=== PATIENT | female | born 1980 | race Caucasian/White ===

== ENCOUNTER 2016-12-09 08:08 | Day surgery (SDC) | payer MEDICAID ==
[~2016-12-09 08:08] MED LIST: Lactated Ringers 1,000 ML IV SCH; Lidocaine 1%/Sod Bicarbonate in NS 8.4% 1 ML Syringe IV PRN; Sodium Chloride 0.9% 10 ML Syringe FLUSH PRN
[2016-12-09] MEDS ORDERED: Dexamethasone 4 MG/ML SDV ONE (08:16)
[2016-12-09] MEDS ORDERED: Succinylcholine/Normal Saline 100 MG/5 ML Syringe ONE (08:16)
[2016-12-09] MEDS ORDERED: Lidocaine 1% 4 ML ONE (08:16)
[2016-12-09] MEDS ORDERED: Ondansetron 4 MG/2 ML SDV ONE (08:16)
[2016-12-09] MEDS ORDERED: Propofol 200 MG/20 ML SDV ONE (08:16)
[2016-12-09] MEDS ORDERED: fentaNYL 250 MCG/5 ML SDV ONE (08:16)
[2016-12-09] MEDS ORDERED: Midazolam 1 MG/ML 2 ML SDV ONE (08:16)
[2016-12-09] MEDS ORDERED: ceFAZolin 1 GM Vial ONE ×2 (08:17)
[2016-12-09] MEDS ORDERED: fentaNYL 100 MCG/2 ML SDV IVPUSH PRN (08:38)
[2016-12-09] MEDS ORDERED: diphenhydrAMINE 50 MG/ML SDV IVPUSH PRN (08:38)
--- NOTE | 2016-12-09 08:50 | PCM.PREANE ---
PreAnesthesia Questionnaire - CURRENT (IN HOUSE) MEDS Current Meds: Current Medications Diphenhydramine HCl (Benadryl) 25 mg IVPUSH Q6H PRN PRN Reason: pruritis Fentanyl (Sublimaze) 50 mcg IVPUSH Q5M PRN PRN Reason: Pain Hydromorphone HCl (Dilaudid) 0.5 mg IVPUSH Q15M PRN PRN Reason: severe pain Stop: 12/09/16 08:54 Lactated Ringer's (Ringers, Lactated) 1,000 mls @ 125 mls/hr IV ASDIRECTED [facility] Lidocaine/Sodium Bicarbonate (Buffered Lidocaine 1% In Ns 8.4%) 0.25 ml IV ONETIME PRN PRN Reason: Prior to IV Start Meperidine HCl (Demerol) 12.5 mg IVPUSH ONETIME PRN PRN Reason: shivering Stop: 12/10/16 08:39 Ondansetron HCl (Zofran) 4 mg IVPUSH ONETIME PRN PRN Reason: Nausea/Vomiting Sodium Chloride (Saline Flush) 10 ml FLUSH ASDIRECTED PRN PRN Reason: Keep Vein Open Discontinued Medications Cefazolin Sodium (Ancef) Confirm Administered Dose 1 gm .ROUTE .STK-MED ONE Stop: 12/09/16 08:18 Cefazolin Sodium (Ancef) Confirm Administered Dose 1 gm .ROUTE .STK-MED ONE Stop: 12/09/16 08:18 Dexamethasone (Dexamethasone) Confirm Administered Dose 8 mg .ROUTE .STK-MED ONE Stop: 12/09/16 08:17 Fentanyl (Sublimaze) Confirm Administered Dose 250 mcg .ROUTE .STK-MED ONE Stop: 12/09/16 08:17 Lactated Ringer's (Ringers, Lactated) 1,000 mls @ 125 mls/hr IV ASDIRECTED [facility] Stop: 11/25/16 23:00 Lidocaine HCl (Xylocaine-Mpf 1%) Confirm Administered Dose 4 mls @ as directed .ROUTE .STK-MED ONE Stop: 12/09/16 08:17 Lidocaine/Sodium Bicarbonate (Buffered Lidocaine 1% In Ns 8.4%) 0.25 ml IV ONETIME PRN PRN Reason: Prior to IV Start Stop: 11/25/16 18:00 Midazolam HCl (Versed 1 Mg/Ml) Confirm Administered Dose 2 mg .ROUTE .STK-MED ONE Stop: 12/09/16 08:17 Ondansetron HCl (Zofran) Confirm Administered Dose 4 mg .ROUTE .STK-MED ONE Stop: 12/09/16 08:17 Propofol (Diprivan 20 Ml) Confirm Administered Dose 400 mg .ROUTE .STK-MED ONE Stop: 12/09/16 08:17 Sodium Chloride (Saline Flush) 10 ml FLUSH ASDIRECTED PRN PRN Reason: Keep Vein Open Stop: 11/25/16 18:00 Succinylcholine Chloride (Succinylcholine In Ns Pf) Confirm Administered Dose 100 mg .ROUTE .STK-MED ONE Stop: 12/09/16 08:17
[2016-12-09] MEDS ORDERED: Ondansetron 4 MG/2 ML SDV IVPUSH PRN (08:59)
--- NOTE | 2016-12-09 09:12 | PCM.PREANE ---
Preanesthetic Assessment - ANESTHESIA/TRANSFUSION/FAMILY HX Anesthesia/Transfusion History: No Prior Transfusion(s), Prior Anesthesia (no complications noted ) Family History of Anesthesia Reaction: No - REVIEW OF SYSTEMS Constitutional: Reports: no symptoms TAILER OFF: Reports: no symptoms Respiratory: Reports: no symptoms Cardiovascular: Reports: no symptoms GI: Reports: no symptoms Other: Reports: none - PHYSICAL ASSESSMENT O2 Sat by Pulse Oximetry: 98 RR: 18 Vital Signs: Last Vital Signs Temp 36.6 C 12/09/16 08:35 Pulse 63 12/09/16 08:35 Resp 18 12/09/16 08:35 BP 116/91 H 12/09/16 08:35 Pulse Ox 98 12/09/16 08:35 NPO Status Date: 12/09/16 NPO Status Time: 22:00 ASA Class: 2 Mental Status: alert & oriented x3 Airway Class: Mallampati = 1 Dentition: Reports: normal dentition Thyro-Mental Finger Breadths: 3 Mouth Opening Finger Breadths: 5 ROM/Head Extension: full Respiratory Status: lungs clear to auscultation bilaterally Cardiovascular Status: regular rate & rhythm, normal S1, S2, no murmur, blood pressure WNL - ALLERGIES Allergies/Adverse Reactions: Allergies Allergy/AdvReac Type Severity Reaction Status Date / Time No Known Drug Allergies Allergy Other Verified 12/09/16 09:09 - BLOOD Blood Available: No - ANESTHESIA PLAN Preop Beta Ericka: No Anesthesia Type Planned: general anesthesia - ACKNOWLEDGEMENTS Pt an appropriate candidate for the planned anesthesia: Yes Alternatives and risks of anesthesia discussed w pt/guardian: Yes Pt/Guardian understands and agree with anesthesia plan: Yes PreAnesthesia Questionnaire HEENT History: Reports: None Cardiovascular History: Reports: None Respiratory History: Reports: None Gastrointestinal History: Reports: None Genitourinary History: Reports: None : 5 Para: 3 Musculoskeletal History: Reports: None Neurological History: Reports: None Psychiatric History: Reports: None Endocrine/Metabolic History: Reports: None Hematologic History: Reports: None Immunologic History: Reports: None Oncologic (Cancer) History: Reports: None Dermatologic History: Reports: None - Infectious Disease History Infectious Disease History: Reports: None - Past Surgical History Female Surgical History: Reports: Other (see below) (IVF) - SUBSTANCE USE Smoking Status *Q: Never Smoker Tobacco Use Within Last Twelve Months: No Number of Drinks Per Day: 0 (has not drank since august ) Recreational Drug Use History: No - HOME MEDS Home Medications: Home Meds . [No Known Home Meds] 12/09/16 [History] - CURRENT (IN HOUSE) MEDS Current Meds: Current Medications Diphenhydramine HCl (Benadryl) 25 mg IVPUSH Q6H PRN PRN Reason: pruritis Stop: 12/09/16 23:59 Fentanyl (Sublimaze) 50 mcg IVPUSH Q5M PRN PRN Reason: Pain Stop: 12/09/16 23:59 Hydromorphone HCl (Dilaudid) 0.5 mg IVPUSH Q15M PRN PRN Reason: severe pain Stop: 12/09/16 09:46 Lactated Ringer's (Ringers, Lactated) 1,000 mls @ 125 mls/hr IV ASDIRECTED [facility] Stop: 12/09/16 23:59 Lidocaine/Sodium Bicarbonate (Buffered Lidocaine 1% In Ns 8.4%) 0.25 ml IV ONETIME PRN PRN Reason: Prior to IV Start Stop: 12/09/16 23:59 Meperidine HCl (Demerol) 12.5 mg IVPUSH ONETIME PRN PRN Reason: shivering Stop: 12/10/16 09:31 Ondansetron HCl (Zofran) 4 mg IVPUSH ONETIME PRN PRN Reason: Nausea/Vomiting Stop: 12/09/16 23:59 Sodium Chloride (Saline Flush) 10 ml FLUSH ASDIRECTED PRN PRN Reason: Keep Vein Open Stop: 12/09/16 23:59 Discontinued Medications Cefazolin Sodium (Ancef) Confirm Administered Dose 1 gm .ROUTE .STK-MED ONE Stop: 12/09/16 08:18 Cefazolin Sodium (Ancef) Confirm Administered Dose 1 gm .ROUTE .STK-MED ONE Stop: 12/09/16 08:18 Dexamethasone (Dexamethasone) Confirm Administered Dose 8 mg .ROUTE .STK-MED ONE Stop: 12/09/16 08:17 Fentanyl (Sublimaze) Confirm Administered Dose 250 mcg .ROUTE .STK-MED ONE Stop: 12/09/16 08:17 Lactated Ringer's (Ringers, Lactated) 1,000 mls @ 125 mls/hr IV ASDIRECTED [facility] Stop: 11/25/16 23:00 Lidocaine HCl (Xylocaine-Mpf 1%) Confirm Administered Dose 4 mls @ as directed .ROUTE .STK-MED ONE Stop: 12/09/16 08:17 Lidocaine/Sodium Bicarbonate (Buffered Lidocaine 1% In Ns 8.4%) 0.25 ml IV ONETIME PRN PRN Reason: Prior to IV Start Stop: 11/25/16 18:00 Midazolam HCl (Versed 1 Mg/Ml) Confirm Administered Dose 2 mg .ROUTE .STK-MED ONE Stop: 12/09/16 08:17 Ondansetron HCl (Zofran) Confirm Administered Dose 4 mg .ROUTE .STK-MED ONE Stop: 12/09/16 08:17 Propofol (Diprivan 20 Ml) Confirm Administered Dose 400 mg .ROUTE .STK-MED ONE Stop: 12/09/16 08:17 Sodium Chloride (Saline Flush) 10 ml FLUSH ASDIRECTED PRN PRN Reason: Keep Vein Open Stop: 11/25/16 18:00 Succinylcholine Chloride (Succinylcholine In Ns Pf) Confirm Administered Dose 100 mg .ROUTE .STK-MED ONE Stop: 12/09/16 08:17
[2016-12-09] MEDS ORDERED: Meperidine PF 50 MG/ML Syringe IVPUSH PRN (09:30)
[2016-12-09] MEDS ORDERED: HYDROmorphone 0.5 MG/0.5 ML Syringe IVPUSH PRN (09:30)
[2016-12-09] MEDS ORDERED: Methylergonovine 0.2 MG/1 ML Amp ONE (09:50)
[2016-12-09] MEDS ORDERED: Oxytocin 10 Units/1 ML SDV ONE ×4 (10:03→10:10)
--- NOTE | 2016-12-09 10:33 | PCM.OPNOTE ---
- General Post-Op/Procedure Note Date of Surgery/Procedure: 12/09/16 Operative Procedure(s): Suction and sharp curettage for missed / blighted ovum. Second trimester Pre Op Diagnosis: Blighted ovum, missed . Second trimester Post-Op Diagnosis: Same Anesthesia Technique: General ET tube Primary Surgeon: Jorge Alberto Bhatia Anesthesia Provider: Rut Valenzuela Fluid Replacement, Intraop: 800 Output, Urine Amount: 120 EBL in mLs: 250 Drain/Tube Comments:: None Complications: None Condition: Good Free Text/Narrative:: Patient was transferred operating room. 3, and placed under general anesthesia in the low dorsal lithotomy position. Prepared and draped in sterile fashion. CDs and place and functioning. Prior surgery. Ancef 2 g intravenously prior to surgery. Timeout performed confirming name, date of , and procedure as , suction, sharp curettage for missed blighted ovum. Second trimester. The examination under anesthesia revealed 9 weeks size uterus. No adnexal masses. The cervix was carefully dilated to 9 Hegar and #9 suction cannula inserted after sounding the uterus to 9 cm suction curettage performed, obtaining, approximately 30-50 mL of tissue (3050 g), and estimated blood loss 50 mL. Patient had, dilute oxytocin solution intravenously, and 5 units of oxytocin injected into the anterior cervical lip and 5 units of Pitocin injected into the posterior cervical lip and Methergine 0.2 IM given for control of blood loss that type is O+ alteration sent to pathology for tissue evaluation. No blood transfusion is required. Patient transported post anesthesia unit in satisfactory condition. Sponge, needle, pack, and splint count correct.
--- NOTE | 2016-12-09 10:39 | PCM.POSTAN ---
POST ANESTHESIA ASSESSMENT - MENTAL STATUS Mental Status: other (drowsy ) - VITAL SIGNS Pulse Rate: 88 SaO2: 96 Resp Rate: 14 Blood Pressure: 128/62 Temperature: 98.2 C - RESPIRATORY Respiratory Status: respiratory rate WNL, airway patent, O2 saturation stable - CARDIOVASCULAR CV Status: pulse rate WNL, blood pressure stable - GASTROINTESTINAL GI Status: no symptoms - POST OP HYDRATION Hydration Status: adequate & stable (sleeping peacefully, did not arouse patient to ask pain level at this time, [employer]ER will continue to monitor )
--- NOTE | 2016-12-09 11:22 | PCM48HPAN ---
Post Anesthesia Note - EVALUATION WITHIN 48HRS OF ANESTHETIC Vital Signs in Normal Range: Yes Patient Participated in Evaluation: Yes Respiratory Function Stable: Yes Airway Patent: Yes Cardiovascular Function Stable: Yes Hydration Status Stable: Yes Pain Control Satisfactory: Yes Nausea and Vomiting Control Satisfactory: Yes Mental Status Recovered: Yes
[2016-12-09 12:05] VITALS: BP 120/73
== END 2016-12-09 12:30 | disposition home or self-care (01) ==
LOC: JD.SDS 08:08
PROVIDERS: ATTEND Obstetrics & Gynecology
PROC: 10D07Z8 Extraction of Products of Conception, Other, Via Natural or Artificial Opening (ICD-10-PCS; principal; 2016-12-09)
DX: O02.0 Blighted ovum and nonhydatidiform mole (principal); Z91.018 Allergy to other foods; Z98.51 Tubal ligation status; Z98.890 Other specified postprocedural states
CPT/HCPCS: 59812; 88305; J0330; J0690; J1100; J2210; J2250; J2405; J2590; J3010; J7120; 01965; J2704

== ENCOUNTER 2016-12-18 23:12 | Emergency (ER) | payer MEDICAID ==
[2016-12-18 23:34] VITALS: BP 152/85
[2016-12-19] MEDS ORDERED: Sodium Chloride 0.9% 1,000 ML IV SCH (01:00)
[2016-12-19] MEDS ORDERED: Ondansetron 4 MG/2 ML SDV IVPUSH ONE (02:22)
[2016-12-19] MEDS ORDERED: HYDROmorphone 1 MG/ML Syringe IVPUSH ONE (02:22)
--- NOTE | 2016-12-19 02:28 | EDM.PDOC ---
ED HPI GI/ABDOMINAL - General Chief Complaint: Abdominal Pain Stated Complaint: AB PAIN Time Seen by Provider: 12/19/16 00:58 Source of Information: Reports: Patient, RN notes reviewed History Limitations: Reports: No limitations - History of Present Illness INITIAL COMMENTS - FREE TEXT/NARRATIVE: The patient states that she underwent a D&C for dysfunctional vaginal bleeding per Dr. Bhatia on 12/09/2016. She states that she developed lower abdominal pain in a belt-like distribution, going around to her lower back Monday evening, , and that the intensity increased significantly around 17:00 to 18:00 tonight. It is sharp in character. It waxes and wanes. She had nausea, but no vomiting. No recent fever, constipation, diarrhea, or urinary symptoms. - Related Data Allergies/ADRs: Allergies Allergy/AdvReac Type Severity Reaction Status Date / Time No Known Drug Allergies Allergy Other Verified 12/18/16 23:34 Home Meds: Home Meds Ibuprofen [Motrin] 600 mg PO Q6H #50 tablet 12/09/16 [Rx] Past Medical History Endocrine/Metabolic History: Reports: Obesity/BMI 30+ - Past Surgical History Female Surgical History: Reports: section (x 3), D&C (x 1) Social & Family History - Tobacco Use Smoking Status *Q: Never Smoker - Caffeine Use Caffeine Use: Reports: None - Alcohol Use Alcohol Use History: Yes Alcohol Use Frequency: Socially - Recreational Drug Use Recreational Drug Use: No - Living Situation & Occupation Living situation: Reports: , with spouse, with family (3 kids, Brother-in -law) ED ROS GENERAL - Review of Systems Review Of Systems: See Below Constitutional: Reports: no symptoms HEENT: Reports: No symptoms Respiratory: Reports: No Symptoms Cardiovascular: Reports: No symptoms Endocrine: Reports: no symptoms GI/Abdominal: Reports: No symptoms : Reports: no symptoms Musculoskeletal: Reports: no symptoms Skin: Reports: no symptoms Neurological: Reports: No Symptoms Psychiatric: Reports: No symptoms Hematologic/Lymphatic: Reports: no symptoms Immunologic: Reports: no symptoms ED EXAM, GI/ABD - Physical Exam Exam: See Below Exam Limited By: No limitations General Appearance: alert, WD/WN, no apparent distress Eyes: bilateral: normal appearance, EOMI Ears: normal external exam, hearing grossly normal Nose: normal inspection, no blood Throat/Mouth: Normal inspection, Normal lips, Normal voice, No airway compromise Head: atraumatic, normocephalic Neck: normal inspection, full range of motion Respiratory/Chest: no respiratory distress, lungs clear, normal breath sounds, no accessory muscle use, chest non-tender Cardiovascular: normal peripheral pulses, regular rate, rhythm, no edema, no gallop, no JVD, no murmur, no rub GI/Abdominal: normal bowel sounds, soft, no organomegaly, no distention, no abnormal bruit, no mass, tenderness (Primarily suprapubic, less tender in the left and right pelvis and epigastric region. Essentially nontender elsewhere.) , other (Obese) Back Exam: normal inspection, full range of motion. No: CVA tenderness (L), CVA tenderness (R) Extremities: normal inspection, normal range of motion, non-tender, normal capillary refill, no pedal edema Neurological: alert, oriented, normal cognition, no motor/sensory deficits Psychiatric: normal affect Skin Exam: Warm, Dry, Intact, Normal color, No rash Lymphatic: no adenopathy Course - Vital Signs Last Recorded V/S: Last Vital Signs Temp 37.2 C 12/18/16 23:31 Pulse 64 12/18/16 23:31 Resp 16 12/18/16 23:31 BP 152/85 H 12/18/16 23:31 Pulse Ox 97 12/18/16 23:31 - Orders/Labs/Meds Labs: Laboratory Tests 12/19/16 12/19/16 12/19/16 Range/Units 00:35 00:35 00:38 WBC 14.00 H (3.98-10.04) K/mm3 RBC 4.90 (3.98-5.22) M/mm3 Hgb 13.1 (11.2-15.7) gm/L Hct 38.8 (34.1-44.9) % MCV 79.2 L (79.4-94.8) fl MCH 26.7 (25.6-32.2) pg MCHC 33.8 (32.2-35.5) g/dl RDW Std Deviation 44.8 (36.4-46.3) fL Plt Count 288 (182-369) K/mm3 MPV 9.9 (9.4-12.3) fl Neutrophils % (Manual) 67 H (40-60) % Band Neutrophils % 3 (0-10) % Lymphocytes % (Manual) 16 L (20-40) % Atypical Lymphs % 2 % Monocytes % (Manual) 8 (2-10) % Eosinophils % (Manual) 4 (0.7-5.8) % Basophils % (Manual) 0 L (0.1-1.2) Platelet Estimate Adequate Plt Morphology Comment Normal Polychromasia Few Microcytosis Few Stomatocytes Moderate RBC Morph Comment Not Reportable Sodium 138 (136-145) mEq/L Potassium 3.5 (3.5-5.1) mEq/L Chloride 103 (98-107) mEq/L Carbon Dioxide 24 (21-32) mEq/L Anion Gap 14.5 (5-15) BUN 11 (7-18) mg/dL Creatinine 0.8 (0.55-1.02) mg/dL Est Cr Clr Drug Dosing 85.56 mL/min Estimated GFR (MDRD) > 60 (>60) mL/min BUN/Creatinine Ratio 13.8 L (14-18) Glucose 127 H (74-106) mg/dL Calcium 9.2 (8.5-10.1) mg/dL Total Bilirubin 0.2 (0.2-1.0) mg/dL AST 15 (15-37) U/L ALT 28 (14-59) U/L Alkaline Phosphatase 58 (46-116) U/L Total Protein 7.7 (6.4-8.2) g/dl Albumin 3.8 (3.4-5.0) g/dl Globulin 3.9 gm/dL Albumin/Globulin Ratio 1.0 (1-2) Lipase 224 (73-393) U/L Urine Color (Yellow) Urine Appearance (Clear) Urine pH (5.0-8.0) Ur Specific [place] (1.005-1.030) Urine Protein (Negative) Urine Glucose (UA) (Negative) Urine Ketones (Negative) Urine Occult Blood (Negative) Urine Nitrite (Negative) Urine Bilirubin (Negative) Urine Urobilinogen (0.2-1.0) Ur Leukocyte Esterase (Negative) Urine RBC (0-5) /hpf Urine WBC (0-5) /hpf Urine WBC Clumps (NOT SEEN) /hpf Ur Epithelial Cells (0-5) /hpf Urine Bacteria (FEW) /hpf Urine Mucus (FEW) /hpf Urine Yeast (NOT SEEN) Urine HCG, Qual (NEGATIVE) 12/19/16 12/19/16 Range/Units 02:00 02:00 WBC (3.98-10.04) K/mm3 RBC (3.98-5.22) M/mm3 Hgb (11.2-15.7) gm/L Hct (34.1-44.9) % MCV (79.4-94.8) fl MCH (25.6-32.2) pg MCHC (32.2-35.5) g/dl RDW Std Deviation (36.4-46.3) fL Plt Count (182-369) K/mm3 MPV (9.4-12.3) fl Neutrophils % (Manual) (40-60) % Band Neutrophils % (0-10) % Lymphocytes % (Manual) (20-40) % Atypical Lymphs % % Monocytes % (Manual) (2-10) % Eosinophils % (Manual) (0.7-5.8) % Basophils % (Manual) (0.1-1.2) Platelet Estimate Plt Morphology Comment Polychromasia Microcytosis Stomatocytes RBC Morph Comment Sodium (136-145) mEq/L Potassium (3.5-5.1) mEq/L Chloride (98-107) mEq/L Carbon Dioxide (21-32) mEq/L Anion Gap (5-15) BUN (7-18) mg/dL Creatinine (0.55-1.02) mg/dL Est Cr Clr Drug Dosing mL/min Estimated GFR (MDRD) (>60) mL/min BUN/Creatinine Ratio (14-18) Glucose (74-106) mg/dL Calcium (8.5-10.1) mg/dL Total Bilirubin (0.2-1.0) mg/dL AST (15-37) U/L ALT (14-59) U/L Alkaline Phosphatase (46-116) U/L Total Protein (6.4-8.2) g/dl Albumin (3.4-5.0) g/dl Globulin gm/dL Albumin/Globulin Ratio (1-2) Lipase (73-393) U/L Urine Color Yellow (Yellow) Urine Appearance Clear (Clear) Urine pH 5.5 (5.0-8.0) Ur Specific [place] > or = 1.030 (1.005-1.030) Urine Protein Negative (Negative) Urine Glucose (UA) Negative (Negative) Urine Ketones Negative (Negative) Urine Occult Blood 1+ H (Negative) Urine Nitrite Negative (Negative) Urine Bilirubin Negative (Negative) Urine Urobilinogen 0.2 (0.2-1.0) Ur Leukocyte Esterase Negative (Negative) Urine RBC 5-10 H (0-5) /hpf Urine WBC 0-5 (0-5) /hpf Urine WBC Clumps Not seen (NOT SEEN) /hpf Ur Epithelial Cells 5-10 H (0-5) /hpf Urine Bacteria Moderate H (FEW) /hpf Urine Mucus Not seen (FEW) /hpf Urine Yeast Not seen (NOT SEEN) Urine HCG, Qual Positive (NEGATIVE) Meds: Medications Discontinued Medications Generic Name Dose Route Start Last Admin Trade Name Freq PRN Reason Stop Dose Admin Diatrizoate Meglum/Diatrizoate Sod 90 ml 12/19/16 03:42 12/19/16 04:02 Gastrografin 37% PO 12/19/16 03:43 90 ml ONETIME ONE Administration Diphenhydramine HCl 50 mg 12/19/16 04:02 12/19/16 04:00 Benadryl IVPUSH 12/19/16 04:03 50 mg ONETIME ONE Administration Diphenhydramine HCl Confirm 12/19/16 04:06 Benadryl Administered 12/19/16 04:07 Dose 50 mg .ROUTE .STK-MED ONE Hydromorphone HCl 1 mg 12/19/16 02:22 12/19/16 02:31 Dilaudid IVPUSH 12/19/16 02:23 1 mg ONETIME ONE Administration Sodium Chloride 1,000 mls @ 150 mls/hr 12/19/16 01:00 12/19/16 01:06 Normal Saline IV 150 mls/hr ASDIRECTED [facility] Administration Iopamidol 150 ml 12/19/16 03:42 12/19/16 04:02 Isovue-300 (61%) IVPUSH 12/19/16 03:43 125 ml ONETIME ONE Administration Ondansetron HCl 4 mg 12/19/16 02:22 12/19/16 02:31 Zofran IVPUSH 12/19/16 02:23 4 mg ONETIME ONE Administration Sodium Chloride 10 ml 12/19/16 03:42 12/19/16 04:02 Saline Flush FLUSH 12/19/16 03:43 10 ml ONETIME ONE Administration - Radiology Interpretation Free Text/Narrative:: CT of the abdomen and pelvis with oral and IV contrast is read by [facility] as: 1. No CT findings of acute appendicitis. 2. Fluid within the endometrial cavity with possible blood products versus retained products of conception. Fluid within the cervix. - Re-Assessments/Exams Free Text/Narrative Re-Assessment/Exam: 12/19/16 02:27 The patient's urine test has returned positive, however, this is known , as the patient recently had a miscarriage, and does not indicate that she is currently . Her quantitative hCG is being followed up by Dr. Bhatia. 12/19/16 03:07 The urinalysis is consistent with contamination, not a UTI. 12/19/16 04:46 Test results discussed with the patient. Today's workup is grossly unremarkable. The patient's pain is consistent with pain expected following a D &C. I'm not recommending any changes in her management at this time, however, I am requesting that she contact Dr. Bhatia this morning to let him know of her ED visit. Departure - Departure Time of Disposition: 04:47 Disposition: Home, Self-Care 01 Condition: fair Clinical Impression: Post procedure discomfort Referrals: Jorge Alberto Bhatia MD [Primary Care Provider] - Forms: ED Department Discharge Additional Instructions: You were seen in the emergency room for lower abdominal pain and nausea, following a D&C 12/09/2016. Workup in the ER included blood work, and a urinalysis, a urine test, and a CT scan of your abdomen and pelvis. Your entire workup was unremarkable. Your pain is MOST LIKELY residual pain from your D&C. We recommend you contact the office of Dr. Bhatia this morning to notify him of your ER visit. If any other problems, please do not hesitate to return to the ER.
[2016-12-19] MEDS ORDERED: Sodium Chloride 0.9% 10 ML Syringe FLUSH ONE (03:42)
[2016-12-19] MEDS ORDERED: Diatrizoate Meglumine/Diatrizoate Sodium 37% 120 ML Bottle PO ONE (03:42)
[2016-12-19] MEDS ORDERED: Iopamidol 612 MG/ML 150 ML Bottle IVPUSH ONE (03:42)
[2016-12-19] MEDS ORDERED: diphenhydrAMINE 50 MG/ML SDV IVPUSH ONE (04:02)
[2016-12-19] MEDS ORDERED: diphenhydrAMINE 50 MG/ML SDV ONE (04:06)
--- NOTE | 2016-12-19 11:08 | CT ---
CT abdomen and pelvis Technique: Multiple axial sections were obtained from above the dome of the diaphragm inferiorly through the pubic symphysis. Intravenous and oral contrast has been given. Delayed images were also obtained through the bladder. Comparison: No previous CT study. Findings: Visualized lung bases are clear. Fatty infiltration is seen within the liver. No focal abnormality identified within the liver. Spleen appears within normal limits. Adrenal glands show no nodule. Pancreas appears within normal limits. Kidneys show symmetric contrast enhancement without hydronephrosis or mass. Aorta shows no aneurysmal dilatation. No retroperitoneal adenopathy or mesenteric abnormalities are seen. Appendix is seen which appears normal. No pelvic mass or adenopathy is seen. Low density identified within the endometrial cavity as well as within the cervix. Delayed images show contrast within the distal ureters and within the bladder. Bone window settings appear within normal limits for the patient's age. No bowel dilatation is seen. No inflammatory change is seen. Impression: 1. Low density within the endometrial cavity and endocervical cavity. Differential includes blood as well as retained products of conception. 2. Fatty infiltration within the liver. Other normal findings as described above. Diagnostic code #3 Agree with preliminary report issued by [email or web address] (preliminary [facility] report dictated on 12/19/16, 5:33 AM Central Time)
== END 2016-12-19 05:15 | disposition home or self-care (01) ==
LOC: JD.ED 23:12
DX: G89.18 Other acute postprocedural pain (principal); R10.9 Unspecified abdominal pain; R11.0 Nausea; Z98.890 Other specified postprocedural states
CPT/HCPCS: 36415; 74177; 80053; 81001; 81025; 83690; 85025; 96361; 96374; 96375; 99284; J1170; J1200; J2405; J7040; J7050; P9612; Q9963; Q9967